=== PATIENT | male | born 1985 | race Caucasian/White ===

== ENCOUNTER 2020-03-22 13:16 | Emergency (ER) | payer OTHER ==
[~2020-03-22] VITALS: Ht 162.6 cm; Wt 99.8 kg
[2020-03-22] MEDS ORDERED: ADDERALL 10 MG10 MG PO (14:06)
== END 2020-03-22 18:37 | disposition home or self-care (01) ==
LOC: ER 13:16
DX: E11.65 Type 2 diabetes mellitus with hyperglycemia (principal)

== ENCOUNTER → 2020-04-02 08:03 | Outpatient (CLI) | payer OTHER ==
[~2020-04-02 08:03] MED LIST: ADDERALL 10 MG10 MG PO
== END | disposition home or self-care (01) ==
LOC: LAB 08:03
PROVIDERS: ATTEND General Practice
DX: E11.65 Type 2 diabetes mellitus with hyperglycemia (principal); Z00.8 Encounter for other general examination; Z13.6 Encounter for screening for cardiovascular disorders

== ENCOUNTER 2020-05-18 07:47 | Outpatient (CLI) | payer OTHER | END 2020-05-18 08:15 | disposition home or self-care (01) | LOC: LAB 07:47 | DX: E11.65 Type 2 diabetes mellitus with hyperglycemia (principal) ==

== ENCOUNTER → 2020-08-16 09:23 | Outpatient (CLI) | payer OTHER | END | disposition home or self-care (01) | LOC: LAB 09:23 | DX: Z03.818 Encounter for observation for suspected exposure to other biological agents ruled out (principal) ==

== ENCOUNTER → 2021-03-21 08:37 | Outpatient (CLI) | payer OTHER | END | disposition home or self-care (01) | LOC: LAB 08:37 | PROVIDERS: ATTEND Internal Medicine Endocrinology, Diabetes & Metabolism | DX: E11.65 Type 2 diabetes mellitus with hyperglycemia (principal); E78.2 Mixed hyperlipidemia; D51.9 Vitamin B12 deficiency anemia, unspecified ==

== ENCOUNTER 2021-12-30 08:35 | Outpatient (CLI) | payer OTHER | END 2021-12-30 08:36 | disposition home or self-care (01) | LOC: LAB 08:35 | PROVIDERS: ATTEND Internal Medicine Endocrinology, Diabetes & Metabolism | DX: E11.65 Type 2 diabetes mellitus with hyperglycemia (principal); E78.2 Mixed hyperlipidemia; D51.9 Vitamin B12 deficiency anemia, unspecified; E55.9 Vitamin D deficiency, unspecified; R68.89 Other general symptoms and signs ==

== ENCOUNTER 2022-01-31 08:18 | Outpatient (CLI) | payer OTHER | END 2022-01-31 08:24 | disposition home or self-care (01) | LOC: LAB 08:18 | PROVIDERS: ATTEND Internal Medicine Endocrinology, Diabetes & Metabolism | DX: E11.65 Type 2 diabetes mellitus with hyperglycemia (principal); E78.2 Mixed hyperlipidemia; R68.89 Other general symptoms and signs; E55.9 Vitamin D deficiency, unspecified ==

== ENCOUNTER → 2022-02-17 | Outpatient (CLI) | payer OTHER | END | disposition home or self-care (01) | LOC: MRI 06:43 | PROVIDERS: ATTEND Internal Medicine | DX: G62.9 Polyneuropathy, unspecified (principal); K76.0 Fatty (change of) liver, not elsewhere classified | CPT/HCPCS: 72141; 72146 ==

== ENCOUNTER → 2022-03-25 | Emergency (ER) | payer OTHER ==
[~2022-03-25] VITALS: Ht 160 cm; Wt 86.2 kg
[~2022-03-25] MED LIST changes: +AMLODIPINE-OLM1 EAC2; +IRBESARTAN75 MG
== END | disposition home or self-care (01) ==
LOC: ER 18:02
DX: R10.31 Right lower quadrant pain (principal); I10 Essential (primary) hypertension; E11.9 Type 2 diabetes mellitus without complications

== ENCOUNTER 2022-06-14 12:04 | Outpatient (CLI) | payer OTHER | END 2022-06-14 12:05 | disposition home or self-care (01) | LOC: LAB 12:04 | PROVIDERS: ATTEND Internal Medicine Endocrinology, Diabetes & Metabolism | DX: E11.65 Type 2 diabetes mellitus with hyperglycemia (principal); E78.2 Mixed hyperlipidemia; R68.89 Other general symptoms and signs; D51.9 Vitamin B12 deficiency anemia, unspecified; E55.9 Vitamin D deficiency, unspecified ==